=== PATIENT | female | born 1970 | race Caucasian/White ===

== ENCOUNTER 2017-04-25 00:52 | Emergency (ER) | payer MEDICAID ==
[~2017-04-25] VITALS: Ht 175.3 cm; Wt 72.5 kg
[~2017-04-25 00:52] MED LIST: METH40TA3 PO; WARF2.5T73 PO
[2017-04-25] MEDS ORDERED: SODIUM CHLORIDE 0.9% 1,000ML IVBOLUS ONE (01:30)
[2017-04-25] MEDS ORDERED: MORPHINE SULFATE 4 MG/ML, 1ML IVPush PRN (01:30)
[2017-04-25] MEDS ORDERED: LORazepam 2 MG/ML, 1ML IVPush ONE (01:30)
[2017-04-25] MEDS ORDERED: SODIUM CHLORIDE FLUSH 10ML SYR IVF ONE (01:30)
[2017-04-25] MEDS ORDERED: MORPHINE SULFATE 4 MG/ML, 1ML ONE (01:45)
[2017-04-25] MEDS ORDERED: LORazepam 2 MG/ML, 1ML ONE (01:46)
[2017-04-25 02:21] LABS: DAU SCREEN DISCLAIMER
[2017-04-25 02:36] LABS: ASPARTATE AMINO TRANSFERASE 25 U/L (15-37); BLOOD UREA NITROGEN 14 mg/dL (7-18)
[2017-04-25 02:42] LABS: IS PT STATUS REG ER OR PRE ER? YES
[2017-04-25] MEDS ORDERED: OMNIPAQUE 350 MG/ML, 100ML BOTTLE ONE (02:45)
[2017-04-25 03:40] VITALS: BP 137/81
== END 2017-04-25 03:59 | disposition home or self-care (01) ==
LOC: ED 01:58
DX: M54.6 Pain in thoracic spine (principal); F15.10 Other stimulant abuse, uncomplicated; F41.9 Anxiety disorder, unspecified; I10 Essential (primary) hypertension
CPT/HCPCS: 36415; 71010; 71275; 80053; 80307; 84484; 85025; 85379; 93005; 96361; 96374; 96375; 99285; J2060; J7030; Q9967

== ENCOUNTER 2020-06-27 02:23 | Inpatient (IN) | payer MEDICAID ==
[~2020-06-27] VITALS: Ht 175.3 cm; Wt 94.4 kg
[~2020-06-27 02:23] MED LIST changes: +WARF2.5T32 PO; -WARF2.5T73 PO; +vicodin PO
[2020-06-27] MEDS ORDERED: ONDANSETRON 2MG/ML, 2ML IVPush ONE (03:00)
[2020-06-27] MEDS ORDERED: AMPICILLIN/SULBACTAM 3 GM in SODIUM CHLORIDE 0.9% 100 ML IV ONE (03:00)
[2020-06-27] MEDS ORDERED: VANCOMYCIN 1,700 MG in SODIUM CHLORIDE 0.9% 250 ML IV ONE (03:00)
[2020-06-27] MEDS ORDERED: SODIUM CHLORIDE 0.9% 1,000ML IVBOLUS ONE (03:00)
[2020-06-27] MEDS ORDERED: SODIUM CHLORIDE FLUSH 10ML SYR IVF ONE (03:00)
[2020-06-27] MEDS ORDERED: VANCOMYCIN PER PHARMACY MC ONE (03:00)
[2020-06-27] MEDS ORDERED: ONDANSETRON 2MG/ML, 2ML ONE ×2 (03:09→16:59)
[2020-06-27] MEDS ORDERED: MORPHINE SULFATE 4 MG/ML, 1ML ONE ×2 (03:09→05:07)
[2020-06-27] MEDS: MORPHINE SULFATE 4 MG/ML, 1ML IV PRN ×2 (03:12→05:10)
--- NOTE | 2020-06-27 03:40 | NUR ---
ct pending creatine.
[2020-06-27 03:45] LABS: ALBUMIN 2.3 g/dL (3.4-5.0); ANION GAP 10 mmol/L (5-15); CALCIUM 8.5 mg/dL (8.5-10.1); CHLORIDE 103 mmol/L (98-107); CREATININE 0.71 mg/dL (0.55-1.02)
[2020-06-27] MEDS ORDERED: METH10OR PO (03:58)
--- NOTE | 2020-06-27 03:58 | NUR ---
Pt to CT.
[2020-06-27 04:08] LABS: <PLATELET ESTIMATE> ADEQUATE; BASOPHILS # (AUTO) 0.02 x10^3/uL (0-0.1); BASOPHILS % (AUTO) 0 % (0-1); EOSINOPHILS # (AUTO) 0.12 x10^3/uL (0-0.4); EOSINOPHILS % (AUTO) 2 % (1-7); LYMPHOCYTES # (AUTO) 1.46 x10^3/uL (1-3.4); LYMPHOCYTES % (AUTO) 20 % (22-44); MD MORPH REVIEW ONLY; MEAN CORPUSCULAR HEMOGLOBIN 27.7 pg (27.0-34.8); MEAN CORPUSCULAR HGB CONC 32.5 g/dL (32.4-35.8); MEAN CORPUSCULAR VOLUME 85.3 fL (80-100); MEAN PLATELET VOLUME 10.6 fL (7.4-10.4); MONOCYTES # (AUTO) 0.78 x10^3/uL (0.2-0.8); MONOCYTES % (AUTO) 11 % (2-9); NEUTROPHILS # (AUTO) 4.88 x10^3/uL (1.8-6.8); NEUTROPHILS % (AUTO) 67 % (42-75); PLATELET COUNT 305 x10^3/uL (130-400); RED BLOOD COUNT 4.01 x10^6/uL (3.82-5.3); RED CELL DISTRIBUTION WIDTH 15.8 % (9.6-15.2)
[2020-06-27 04:09] LABS: GIANT PLATELETS 1+; LARGE PLATELETS 1+
[2020-06-27] MEDS ORDERED: OMNIPAQUE 350 MG/ML, 100ML BOTTLE ONE (04:21)
--- NOTE | 2020-06-27 04:50 | NUR ---
Pt's wound cleaned w/ NS, then wrapped in sterile 4x4's and kerlex.
[2020-06-27] MEDS ORDERED: POTASSIUM CHLORIDE 20 MEQ TAB.ER.PRT ONE (05:41)
[2020-06-27] MEDS ORDERED: POTASSIUM CHLORIDE 20 MEQ TAB.ER.PRT PO ONE (06:00)
--- NOTE | 2020-06-27 06:59 | NUR ---
bedside report from DALE Dias.
--- NOTE | 2020-06-27 07:12 | NUR ---
PT AMBULATORY WITH STEADY GAIT. WALKED PT TO FRONT LOBBY FOR HER TO LOOK FOR HER DAD TO GET HER PHONE PERCHER. PT ASKED IF SHE CAN SMOKE A CIGARETTE. PT EDUCATED REGARDING POLICY. THIS RN WALKED PT BACK TO HER ROOM. PT ASKED TO CHANGE INTO A GOWN. ARABELLA
--- NOTE | 2020-06-27 08:02 | NUR ---
ATTEMPT X 1 FOR REPORT. RECEIVING RN IN PT ROOM
--- NOTE | 2020-06-27 08:30 | NUR ---
REPORT TO DALE LUIS. ALL QUESTIONS ANSWERED
[2020-06-27] MEDS: SODIUM CHLORIDE 0.9% 1,000 ML IV SCH (10:22)
[2020-06-27] MEDS ORDERED: KETOROLAC 30 MG/1 ML IV PRN (10:30)
[2020-06-27] MEDS ORDERED: BISACODYL 10 MG SUPP PR PRN (10:30)
[2020-06-27] MEDS ORDERED: DOCUSATE 100 MG CAPSULE PO PRN (10:30)
[2020-06-27] MEDS ORDERED: VANCOMYCIN PER PHARMACY MC PRN (10:30)
[2020-06-27] MEDS ORDERED: POLYETHYLENE GLYCOL 17 GM PACKET PO PRN (10:30)
[2020-06-27] MEDS ORDERED: ONDANSETRON 2MG/ML, 2ML IVPush PRN ×2 (10:30→17:30)
[2020-06-27] MEDS ORDERED: ACETAMINOPHEN 325 MG TABLET PO PRN ×2 (10:30→17:30)
[2020-06-27] MEDS ORDERED: PHARMACOKINETIC CONSULTATION MC ONE (11:00)
[2020-06-27] MEDS ORDERED: PHARMACOKINETIC MONITORING MC PRN (11:00)
[2020-06-27] MEDS: LACTOBACILLUS CHEW TABLET PO SCH ×3 (11:06→22:33)
[2020-06-27] MEDS: HYDROcodone/APAP 5/325 TABLET PO PRN (11:07)
[2020-06-27] MEDS: ENOXAPARIN 40 MG/0.4 ML SQ SCH (11:07)
[2020-06-27] MEDS ORDERED: MORPHINE SULFATE 4 MG/ML, 1ML IVPush PRN (12:00)
[2020-06-27] MEDS: AMPICILLIN/SULBACTAM 3 GM in SODIUM CHLORIDE 0.9% 100 ML IV SCH ×2 (13:00→22:33)
[2020-06-27] MEDS ORDERED: METHADONE INTENSOL 10 MG/ML ORAL CONC PO SCH (13:30)
[2020-06-27] MEDS: MORPHINE SULFATE 4 MG/ML, 1ML IVPush PRN (13:34)
[2020-06-27 14:36] VITALS: BP 122/80
[2020-06-27] MEDS ORDERED: CHLORHEXIDINE 15 ML UDC MM STA (15:42)
[2020-06-27] MEDS ORDERED: CHLORHEXIDINE 15 ML UDC ONE (15:46)
[2020-06-27 16:18] LABS: HCG UR SG > 1.045 (1.003-1.030)
[2020-06-27] MEDS ORDERED: FENTANYL PF 100 MCG/2ML ONE ×5 (16:22→17:40)
[2020-06-27] MEDS ORDERED: MIDAZOLAM 1 MG/ML, 2ML ONE (16:22)
[2020-06-27] MEDS ORDERED: PROPOFOL 10 MG/ML, 20ML ONE ×2 (16:44→16:59)
[2020-06-27] MEDS ORDERED: KETOROLAC 30 MG/1 ML ONE (16:53)
[2020-06-27] MEDS ORDERED: LIDOCAINE-MPF 2% ,5ML ONE (16:53)
[2020-06-27] MEDS ORDERED: DEXAMETHASONE 4 MG/ML, 1ML ONE (16:59)
[2020-06-27] MEDS ORDERED: HYDROmorphone 2 MG/ML, 1ML ONE (17:23)
[2020-06-27] MEDS ORDERED: OXYcodone 5 MG/5 ML ORAL.SOL UDC ONE (17:23)
[2020-06-27] MEDS: FENTANYL PF 100 MCG/2ML IV PRN ×4 (17:26→17:54)
[2020-06-27] MEDS ORDERED: EPHEDRINE 50 MG/ML, 1ML IVPush PRN (17:30)
[2020-06-27] MEDS ORDERED: LABETALOL 5MG/ML, 20ML IV PRN (17:30)
[2020-06-27] MEDS ORDERED: OXYcodone 5 MG/5 ML ORAL.SOL UDC PO PRN (17:30)
[2020-06-27] MEDS ORDERED: PROMETHAZINE 25 MG/ML, 1ML IVPush PRN (17:30)
[2020-06-27] MEDS ORDERED: MEPERIDINE/PF 25MG/0.5ML IVPush PRN (17:30)
[2020-06-27] MEDS ORDERED: hydrALAzine 20 MG/ML, 1ML IV PRN (17:30)
[2020-06-27] MEDS: HYDROmorphone 1 MG/ML, 1ML INJ IVPush PRN ×4 (17:36→17:53)
[2020-06-27 19:57] VITALS: BP 126/81
[2020-06-27] MEDS: VANCOMYCIN 1,400 MG in SODIUM CHLORIDE 0.9% 250 ML IV SCH (20:26)
[2020-06-28] MEDS: MORPHINE SULFATE 4 MG/ML, 1ML IVPush PRN ×5 (00:49→22:02)
[2020-06-28 01:08] VITALS: BP 118/72
[2020-06-28] MEDS: SODIUM CHLORIDE 0.9% 1,000 ML IV SCH (02:56)
[2020-06-28] MEDS: LACTOBACILLUS CHEW TABLET PO SCH ×4 (05:09→20:04)
[2020-06-28] MEDS: AMPICILLIN/SULBACTAM 3 GM in SODIUM CHLORIDE 0.9% 100 ML IV SCH ×3 (06:35→22:55)
[2020-06-28 06:45] LABS: MEAN CORPUSCULAR HEMOGLOBIN 27.5 pg (27.0-34.8); MEAN CORPUSCULAR HGB CONC 32.1 g/dL (32.4-35.8); MEAN CORPUSCULAR VOLUME 85.8 fL (80-100); MEAN PLATELET VOLUME 10.6 fL (7.4-10.4); PLATELET COUNT 235 x10^3/uL (130-400); RED BLOOD COUNT 3.64 x10^6/uL (3.82-5.3); RED CELL DISTRIBUTION WIDTH 16.3 % (9.6-15.2)
[2020-06-28 06:50] LABS: ALBUMIN 2.1 g/dL (3.4-5.0); ANION GAP 8 mmol/L (5-15); CALCIUM 8.5 mg/dL (8.5-10.1); CHLORIDE 111 mmol/L (98-107)
[2020-06-28 06:55] LABS: ALANINE AMINOTRANSFERASE 39 U/L (12-78); ALKALINE PHOSPHATASE 283 U/L (45-117); BILIRUBIN,TOTAL 0.3 mg/dL (0.2-1.0); CREATININE 0.64 mg/dL (0.55-1.02); TOTAL PROTEIN 6.1 g/dL (6.4-8.2)
[2020-06-28 07:01] VITALS: BP 160/88
[2020-06-28 07:01] LABS: MD YES
[2020-06-28 07:32] LABS: BAND#(MANUAL) 0.55 x10^3/uL; BANDS%(MANUAL) 9 % (0-7); LYMPH#(MANUAL) 0.37 x10^3/uL (1-3.4); LYMPHS% (MANUAL) 6 % (22-44); METAMYELOCYTES# (MANUAL) 0.31 x10^3/uL (0-0); METAMYELOCYTES% (MANUAL) 5 % (0-1); MONOS#(MANUAL) 0.06 x10^3/uL (0.3-2.7); MONOS% (MANUAL) 1 % (2-9); SEG#(MANUAL) 4.82 x10^3/uL (1.8-6.8); SEGS% (MANUAL) 79 % (42-75)
[2020-06-28 07:33] LABS: ANISOCYTOSIS 1+
[2020-06-28 07:35] LABS: <PLATELET ESTIMATE> ADEQUATE; HYPOCHROMIA 1+; LARGE PLATELETS 1+; OVALOCYTES 1+
[2020-06-28] MEDS ORDERED: METHADONE 10 MG TABLET ONE (08:48)
[2020-06-28] MEDS: VANCOMYCIN 1,400 MG in SODIUM CHLORIDE 0.9% 250 ML IV SCH (08:50)
[2020-06-28] MEDS ORDERED: METHADONE INTENSOL 10 MG/ML ORAL CONC PO SCH (09:00)
[2020-06-28] MEDS: ENOXAPARIN 40 MG/0.4 ML SQ SCH (09:51)
[2020-06-28 13:21] VITALS: BP 155/100
[2020-06-28] MEDS: LORazepam 2 MG/ML, 1ML IVPush PRN ×2 (15:46→22:56)
[2020-06-28] MEDS: METHADONE INTENSOL 10 MG/ML ORAL CONC PO SCH (17:47)
[2020-06-28 18:12] VITALS: BP 136/77
[2020-06-28] MEDS: VANCOMYCIN 1,600 MG in SODIUM CHLORIDE 0.9% 250 ML IV SCH (20:04)
[2020-06-29 02:16] VITALS: BP 154/99
[2020-06-29] MEDS: MORPHINE SULFATE 4 MG/ML, 1ML IVPush PRN ×4 (04:10→21:27)
[2020-06-29] MEDS: LORazepam 2 MG/ML, 1ML IVPush PRN ×3 (05:11→19:40)
[2020-06-29] MEDS: LACTOBACILLUS CHEW TABLET PO SCH ×4 (05:13→19:40)
[2020-06-29 06:01] LABS: ANION GAP 7 mmol/L (5-15); CALCIUM 8.3 mg/dL (8.5-10.1); CHLORIDE 111 mmol/L (98-107)
[2020-06-29 06:02] LABS: CREATININE 0.66 mg/dL (0.55-1.02)
[2020-06-29 06:20] LABS: MEAN CORPUSCULAR HEMOGLOBIN 27.2 pg (27.0-34.8); MEAN CORPUSCULAR HGB CONC 31.4 g/dL (32.4-35.8); MEAN CORPUSCULAR VOLUME 86.7 fL (80-100); PLATELET COUNT 271 x10^3/uL (130-400); RED BLOOD COUNT 3.62 x10^6/uL (3.82-5.3)
[2020-06-29] MEDS: AMPICILLIN/SULBACTAM 3 GM in SODIUM CHLORIDE 0.9% 100 ML IV SCH ×3 (06:37→22:36)
[2020-06-29 07:35] LABS: MD YES
[2020-06-29 07:37] LABS: BAND#(MANUAL) 0.55 x10^3/uL; BANDS%(MANUAL) 7 % (0-7); EOS#(MANUAL) 0.16 x10^3/uL (0.0-0.4); EOS% (MANUAL) 2 % (1-7); LYMPH#(MANUAL) 2.13 x10^3/uL (1-3.4); LYMPHS% (MANUAL) 27 % (22-44); METAMYELOCYTES# (MANUAL) 0.24 x10^3/uL (0-0); METAMYELOCYTES% (MANUAL) 3 % (0-1); MONOS#(MANUAL) 0.32 x10^3/uL (0.3-2.7); MONOS% (MANUAL) 4 % (2-9); MYELOCYTES# (MANUAL) 0.32 x10^3/uL (0-0); MYELOCYTES% (MANUAL) 4 % (0-0); SEG#(MANUAL) 4.19 x10^3/uL (1.8-6.8); SEGS% (MANUAL) 53 % (42-75)
[2020-06-29 07:38] LABS: <PLATELET ESTIMATE> ADEQUATE; ANISOCYTOSIS 1+; HYPOCHROMIA 1+; LARGE PLATELETS 1+
[2020-06-29 07:53] VITALS: BP 147/84
[2020-06-29] MEDS: VANCOMYCIN 1,600 MG in SODIUM CHLORIDE 0.9% 250 ML IV SCH ×2 (08:14→19:40)
[2020-06-29] MEDS: ENOXAPARIN 40 MG/0.4 ML SQ SCH (11:13)
[2020-06-29 14:16] VITALS: BP 149/85
[2020-06-29] MEDS: METHADONE INTENSOL 10 MG/ML ORAL CONC PO SCH (16:29)
[2020-06-29 18:26] VITALS: BP 152/96
[2020-06-30] VITALS (7 sets, daily range): BP systolic 151–180; BP diastolic 71–113
[2020-06-30] MEDS: MORPHINE SULFATE 4 MG/ML, 1ML IVPush PRN ×2 (01:43→06:10)
[2020-06-30] MEDS: LORazepam 2 MG/ML, 1ML IVPush PRN (03:55)
[2020-06-30 05:51] LABS: ANION GAP 7 mmol/L (5-15); CALCIUM 8.3 mg/dL (8.5-10.1); CHLORIDE 110 mmol/L (98-107)
[2020-06-30 05:52] LABS: CREATININE 0.63 mg/dL (0.55-1.02)
[2020-06-30] MEDS: LACTOBACILLUS CHEW TABLET PO SCH ×4 (06:10→19:57)
[2020-06-30] MEDS: AMPICILLIN/SULBACTAM 3 GM in SODIUM CHLORIDE 0.9% 100 ML IV SCH (06:13)
[2020-06-30 07:50] LABS: BASOPHILS # (AUTO) 0.04 x10^3/uL (0-0.1); BASOPHILS % (AUTO) 1 % (0-1); EOSINOPHILS # (AUTO) 0.18 x10^3/uL (0-0.4); EOSINOPHILS % (AUTO) 2 % (1-7); LYMPHOCYTES # (AUTO) 1.77 x10^3/uL (1-3.4); LYMPHOCYTES % (AUTO) 22 % (22-44); MD NO; MEAN CORPUSCULAR HEMOGLOBIN 27.4 pg (27.0-34.8); MEAN CORPUSCULAR VOLUME 85.7 fL (80-100); MEAN PLATELET VOLUME 9.3 fL (7.4-10.4); MONOCYTES # (AUTO) 0.38 x10^3/uL (0.2-0.8); MONOCYTES % (AUTO) 5 % (2-9); NEUTROPHILS # (AUTO) 5.58 x10^3/uL (1.8-6.8); NEUTROPHILS % (AUTO) 70 % (42-75); PLATELET COUNT 290 x10^3/uL (130-400); RED BLOOD COUNT 3.75 x10^6/uL (3.82-5.3); RED CELL DISTRIBUTION WIDTH 15.7 % (9.6-15.2)
[2020-06-30] MEDS ORDERED: KETOROLAC 30 MG/1 ML ONE (08:11)
[2020-06-30] MEDS: HYDROcodone/APAP 5/325 TABLET PO PRN ×2 (08:13→14:19)
[2020-06-30] MEDS: CEFTRIAXONE PMX 1GM/50ML 50 ML IV SCH (08:14)
[2020-06-30] MEDS: KETOROLAC 30 MG/1 ML IV PRN ×2 (08:14→17:34)
[2020-06-30] MEDS ORDERED: MORPHINE SULFATE 4 MG/ML, 1ML IVPush PRN (09:30)
[2020-06-30] MEDS ORDERED: LABETALOL 5MG/ML, 20ML IVPush PRN (10:00)
[2020-06-30] MEDS ORDERED: hydrALAzine 20 MG/ML, 1ML IV PRN (10:00)
[2020-06-30] MEDS: ENOXAPARIN 40 MG/0.4 ML SQ SCH (11:01)
[2020-06-30] MEDS: GABAPENTIN 100 MG CAPSULE PO SCH ×2 (11:02→17:33)
[2020-06-30] MEDS: METHADONE INTENSOL 10 MG/ML ORAL CONC PO SCH (17:33)
[2020-06-30] MEDS: NICOTINE 7 MG/24 HR PATCH.TD24 TD SCH (19:57)
[2020-07-01] MEDS: KETOROLAC 30 MG/1 ML IV PRN ×4 (00:06→18:54)
[2020-07-01] MEDS: HYDROcodone/APAP 5/325 TABLET PO PRN ×5 (00:06→18:53)
[2020-07-01 00:32] VITALS: BP 145/83
[2020-07-01] MEDS: LACTOBACILLUS CHEW TABLET PO SCH ×4 (06:10→20:20)
[2020-07-01 06:56] VITALS: BP 170/109
[2020-07-01] MEDS: LISINOPRIL 10 MG TABLET PO SCH (09:26)
[2020-07-01] MEDS: ENOXAPARIN 40 MG/0.4 ML SQ SCH (09:26)
[2020-07-01] MEDS: GABAPENTIN 100 MG CAPSULE PO SCH ×4 (09:26→20:21)
[2020-07-01] MEDS: CEFTRIAXONE PMX 1GM/50ML 50 ML IV SCH (09:30)
[2020-07-01 12:55] VITALS: BP 159/88
[2020-07-01] MEDS: METHADONE INTENSOL 10 MG/ML ORAL CONC PO SCH (17:32)
[2020-07-01 19:23] VITALS: BP 169/99
[2020-07-01] MEDS: NICOTINE 7 MG/24 HR PATCH.TD24 TD SCH (20:19)
[2020-07-02 01:02] VITALS: BP 145/88
[2020-07-02] MEDS: HYDROcodone/APAP 5/325 TABLET PO PRN ×4 (01:07→19:15)
[2020-07-02] MEDS: LACTOBACILLUS CHEW TABLET PO SCH ×3 (06:19→16:38)
[2020-07-02] MEDS ORDERED: CEFD300C37 PO (08:12)
[2020-07-02] MEDS ORDERED: LISI-167 PO (08:12)
[2020-07-02] MEDS ORDERED: GABA-826 PO (08:12)
[2020-07-02] MEDS ORDERED: HYDR-3237 PO (08:12)
[2020-07-02 08:22] VITALS: BP 153/95
[2020-07-02] MEDS: CEFTRIAXONE PMX 1GM/50ML 50 ML IV SCH (08:38)
[2020-07-02] MEDS: ENOXAPARIN 40 MG/0.4 ML SQ SCH (08:38)
[2020-07-02] MEDS: KETOROLAC 30 MG/1 ML IV PRN (08:39)
[2020-07-02] MEDS: LISINOPRIL 10 MG TABLET PO SCH (08:39)
[2020-07-02] MEDS: GABAPENTIN 100 MG CAPSULE PO SCH ×2 (08:39→16:38)
[2020-07-02 15:00] VITALS: BP 178/99
[2020-07-02] MEDS: METHADONE INTENSOL 10 MG/ML ORAL CONC PO SCH (16:27)
== END 2020-07-02 22:55 | disposition home health service (06) | DRG 571 ==
LOC: ED 04:37 → EDIP 06:31 → 3N 09:56
PROVIDERS: ADMIT Family Medicine; ATTEND Family Medicine
PROC: 0J9F0ZZ Drainage of Left Upper Arm Subcutaneous Tissue and Fascia, Open Approach (ICD-10-PCS; 2020-06-27)
PROC: 0JBF0ZZ Excision of Left Upper Arm Subcutaneous Tissue and Fascia, Open Approach (ICD-10-PCS; principal; 2020-06-27 15:30)
DX: L02.414 Cutaneous abscess of left upper limb (principal); D68.51 Activated protein C resistance; D68.59 Other primary thrombophilia; F41.1 Generalized anxiety disorder; F17.200 Nicotine dependence, unspecified, uncomplicated; E87.6 Hypokalemia; L03.114 Cellulitis of left upper limb; D64.9 Anemia, unspecified; I10 Essential (primary) hypertension; Z86.19 Personal history of other infectious and parasitic diseases; Z86.711 Personal history of pulmonary embolism; Z20.828 Contact with and (suspected) exposure to other viral communicable diseases
CPT/HCPCS: 36415; 84145; 96365; 96375; 96376; 99285; J3490; 80048; 80053; 81025; 82040; 83605; 83735; 84100; 84443; 85025; 87015; 87040; 87070; 87075; 87077; 87102; 87116; 87205; 87206; 87635; 93005; 99406; G0378; J0295; J0696; J1100; J1170; J1650; J1885; J2250; J2405; J2704; J3010; J3370; Q9967; J2060; J2270; J7030; J7050

== ENCOUNTER 2020-07-15 13:42 | Outpatient (CLI) | payer MEDICAID ==
[~2020-07-15 13:42] MED LIST changes: +CEFD300C37 PO; +GABA-826 PO; +HYDR-3237 PO; +LISI-167 PO; +METH10OR PO
== END 2020-07-15 23:59 | disposition home or self-care (01) ==
LOC: WOUND 13:42
PROVIDERS: ATTEND Internal Medicine
DX: T81.89XA Other complications of procedures, not elsewhere classified, initial encounter (principal); L02.414 Cutaneous abscess of left upper limb; F15.90 Other stimulant use, unspecified, uncomplicated; Z86.711 Personal history of pulmonary embolism; G89.29 Other chronic pain; F41.9 Anxiety disorder, unspecified; F32.9 Major depressive disorder, single episode, unspecified; I10 Essential (primary) hypertension; F17.200 Nicotine dependence, unspecified, uncomplicated; Z86.73 Personal history of transient ischemic attack (TIA), and cerebral infarction without residual deficits; Y92.238 Other place in hospital as the place of occurrence of the external cause; Y83.8 Other surgical procedures as the cause of abnormal reaction of the patient, or of later complication, without mention of misadventure at the time of the procedure
CPT/HCPCS: 11042; 11045; 97605; 99215

== ENCOUNTER → 2020-07-17 | Outpatient (CLI) | payer MEDICAID | END | disposition home or self-care (01) | LOC: WOUND 13:54 | PROVIDERS: ATTEND Internal Medicine | DX: T81.89XD Other complications of procedures, not elsewhere classified, subsequent encounter (principal); L02.414 Cutaneous abscess of left upper limb; I10 Essential (primary) hypertension; F41.1 Generalized anxiety disorder; F32.9 Major depressive disorder, single episode, unspecified; F17.200 Nicotine dependence, unspecified, uncomplicated; G89.29 Other chronic pain; Z86.711 Personal history of pulmonary embolism; Z86.73 Personal history of transient ischemic attack (TIA), and cerebral infarction without residual deficits; Y83.8 Other surgical procedures as the cause of abnormal reaction of the patient, or of later complication, without mention of misadventure at the time of the procedure | CPT/HCPCS: 97605 ==

== ENCOUNTER → 2020-07-19 | Outpatient (CLI) | payer MEDICAID | END | disposition home or self-care (01) | LOC: WOUND 13:45 | PROVIDERS: ATTEND Family Medicine | DX: T81.89XD Other complications of procedures, not elsewhere classified, subsequent encounter (principal); L02.414 Cutaneous abscess of left upper limb; I10 Essential (primary) hypertension; F41.1 Generalized anxiety disorder; F32.9 Major depressive disorder, single episode, unspecified; F17.200 Nicotine dependence, unspecified, uncomplicated; G89.29 Other chronic pain; Z86.711 Personal history of pulmonary embolism; Z86.73 Personal history of transient ischemic attack (TIA), and cerebral infarction without residual deficits; Y83.8 Other surgical procedures as the cause of abnormal reaction of the patient, or of later complication, without mention of misadventure at the time of the procedure | CPT/HCPCS: 97605 ==

== ENCOUNTER → 2020-07-22 | Outpatient (CLI) | payer MEDICAID | END | disposition home or self-care (01) | LOC: WOUND 13:27 | PROVIDERS: ATTEND Internal Medicine | DX: T81.89XD Other complications of procedures, not elsewhere classified, subsequent encounter (principal); L02.414 Cutaneous abscess of left upper limb; I10 Essential (primary) hypertension; F41.1 Generalized anxiety disorder; F32.9 Major depressive disorder, single episode, unspecified; F17.200 Nicotine dependence, unspecified, uncomplicated; G89.29 Other chronic pain; F15.90 Other stimulant use, unspecified, uncomplicated; Z86.711 Personal history of pulmonary embolism; Z86.73 Personal history of transient ischemic attack (TIA), and cerebral infarction without residual deficits; Z86.19 Personal history of other infectious and parasitic diseases; Y83.8 Other surgical procedures as the cause of abnormal reaction of the patient, or of later complication, without mention of misadventure at the time of the procedure | CPT/HCPCS: 97597 ==